=== PATIENT | male | born 1945 | race Caucasian/White ===

== ENCOUNTER 2021-03-26 16:04 | Inpatient (IN) ==
[2021-03-26] MEDS ORDERED: Lactated Ringers 1000 ml BAG 1,000 ML IV ONE (16:41)
[2021-03-26] MEDS ORDERED: Ondansetron 4 mg VIAL 2 MG/ML 2 ml VIAL IV ONE (16:51)
[2021-03-26 17:28] LABS: ABS Lymphocytes 0.3 10^3/ul (1.0-4.8); ABS Monocytes 0.3 10^3/ul (0-0.8); ABS Neutrophils 5.2 10^3/ul (1.5-7.7); Eosinophil % 0.8 %; Hematocrit 41 % (42-52); Lymphocyte % 5.6 %; Mean Corpuscular HGB Conc 35 g/dL (31-36); Mean Corpuscular Hemoglobin 32 pg (27-31); Mean Corpuscular Volume 93 fL (80-94); Mean Platelet Volume 6.9 fL (7.4-10.4); Platelet Count 276 10^3/uL (150-450); Red Blood Count 4.37 10^6 /uL (4.18-5.48); Red Cell Distribution Width 14 % (10-15); White Blood Count 5.9 10^3/uL (3.5-10.8)
[2021-03-26 17:51] LABS: Albumin 4.4 g/dL (3.2-5.2); Albumin/Globulin Ratio 1.4 (1-3); Calcium 9.3 mg/dL (8.6-10.3); Globulin 3.1 g/dL (2-4); Magnesium 1.6 mg/dL (1.9-2.7); Potassium 3.9 mmol/L (3.5-5.0); Total Bilirubin 1.2 mg/dL (0.2-1.0); Total Protein 7.5 g/dL (6.4-8.9); eGFR CKD-EPI 86.7 (>60)
[2021-03-26] MEDS ORDERED: Magnesium Sulfate IV 1GM/100ML 1 GM/100 ML BAG IV ONE (17:52)
[2021-03-26 17:54] LABS: Alcohol, S < 13 mg/dL (<13)
[2021-03-26] MEDS ORDERED: Thiamine 100 MG/ML 2 ml VIAL 100 MG, Folic Acid IV 1 MG, Multiple Vitamin IV ADULT 10 M... IV ONE (18:00)
[2021-03-26] MEDS ORDERED: NS 0.9% 1000 ml BAG 1,000 ML ONE (18:32)
[2021-03-26] MEDS ORDERED: Thiamine 100 MG/ML 2 ml VIAL (200 mg) ONE (18:32)
[2021-03-26 19:01] LABS: Urine Appearance Clear; Urine Bilirubin Negative (Negative); Urine Blood Negative (Negative); Urine Color Yellow; Urine Glucose 2+(150 mg/dL) (Negative); Urine Ketones Trace (Negative); Urine Nitrite Negative (Negative); Urine Protein Negative (Negative); Urine Specific Gravity 1.019 (1.002-1.030); Urine Urobilinogen Negative (Negative)
[2021-03-26] MEDS ORDERED: Magnesium Sulfate 2 gm BAG 2 GM/50 ML BAG IVPB ONE (22:40)
[2021-03-26] MEDS ORDERED: Enoxaparin 40 MG/0.4 ML SYR SUBCUT ONE (23:24)
[2021-03-27 08:11] LABS: ABS Eosinophils 0.3 10^3/ul (0-0.6); ABS Lymphocytes 0.6 10^3/ul (1.0-4.8); ABS Monocytes 0.5 10^3/ul (0-0.8); ABS Neutrophils 3.2 10^3/ul (1.5-7.7); Eosinophil % 6.4 %; Hematocrit 36 % (42-52); Hemoglobin 12.5 g/dL (14.0-18.0); Mean Corpuscular HGB Conc 35 g/dL (31-36); Mean Corpuscular Hemoglobin 32 pg (27-31); Mean Corpuscular Volume 92 fL (80-94); Mean Platelet Volume 6.6 fL (7.4-10.4); Platelet Count 241 10^3/uL (150-450); Red Blood Count 3.89 10^6 /uL (4.18-5.48); Red Cell Distribution Width 13 % (10-15); White Blood Count 4.6 10^3/uL (3.5-10.8)
[2021-03-27 08:28] LABS: Calcium 8.3 mg/dL (8.6-10.3); Potassium 3.6 mmol/L (3.5-5.0); eGFR CKD-EPI 89.1 (>60)
[2021-03-27 08:30] LABS: Troponin I 0.01 ng/mL (<0.03)
[2021-03-27] MEDS: Multivitamins/Minerals TAB PO SCH (09:01)
[2021-03-27 10:29] LABS: Direct Bilirubin 0.2 mg/dL (0.03-0.18); Indirect Bilirubin 0.8 mg/dL (0.3-1.0); Phosphorus 2.5 mg/dL (2.5-5.0)
[2021-03-27] MEDS ORDERED: Potassium Chlor 20 meq TAB.ER PO ONE (18:17)
[2021-03-27] MEDS: Enoxaparin 40 MG/0.4 ML SYR SUBCUT SCH (20:06)
[2021-03-27 21:17] LABS: Vitamin B12 252 pg/mL (180-914)
[2021-03-28 07:23] LABS: ABS Basophils 0.1 10^3/ul (0-0.2); ABS Eosinophils 0.3 10^3/ul (0-0.6); ABS Lymphocytes 0.7 10^3/ul (1.0-4.8); ABS Monocytes 0.5 10^3/ul (0-0.8); Hematocrit 37 % (42-52); Hemoglobin 13.1 g/dL (14.0-18.0); Lymphocyte % 20.6 %; Mean Corpuscular HGB Conc 35 g/dL (31-36); Mean Corpuscular Hemoglobin 32 pg (27-31); Mean Corpuscular Volume 93 fL (80-94); Mean Platelet Volume 6.5 fL (7.4-10.4); Platelet Count 242 10^3/uL (150-450); Red Blood Count 4.04 10^6 /uL (4.18-5.48); Red Cell Distribution Width 13 % (10-15); White Blood Count 3.6 10^3/uL (3.5-10.8)
[2021-03-28 07:38] LABS: Calcium 8.7 mg/dL (8.6-10.3); Magnesium 1.8 mg/dL (1.9-2.7); Potassium 3.8 mmol/L (3.5-5.0); eGFR CKD-EPI 83.5 (>60)
[2021-03-28] MEDS ORDERED: Magnesium Sulfate 2 gm BAG 2 GM/50 ML BAG IVPB ONE (07:45)
[2021-03-28] MEDS: Multivitamins/Minerals TAB PO SCH (09:59)
[2021-03-28] MEDS ORDERED: Iohexol 350 (CONTRAST) 500 ML MDV IV ONE (12:02)
[2021-03-28 12:34] LABS: HDL Cholesterol 43.6 mg/dL
[2021-03-28] MEDS: Pantoprazole VIAL 40 MG VIAL IV SCH (14:32)
[2021-03-28] MEDS: Enoxaparin 40 MG/0.4 ML SYR SUBCUT SCH (22:04)
[2021-03-29 06:21] LABS: ABS Basophils 0.1 10^3/ul (0-0.2); ABS Eosinophils 0.3 10^3/ul (0-0.6); ABS Lymphocytes 0.8 10^3/ul (1.0-4.8); ABS Monocytes 0.6 10^3/ul (0-0.8); ABS Neutrophils 2.5 10^3/ul (1.5-7.7); Eosinophil % 7.4 %; Hematocrit 41 % (42-52); Hemoglobin 14.5 g/dL (14.0-18.0); Lymphocyte % 18.4 %; Mean Corpuscular HGB Conc 35 g/dL (31-36); Mean Corpuscular Hemoglobin 32 pg (27-31); Mean Corpuscular Volume 91 fL (80-94); Mean Platelet Volume 6.9 fL (7.4-10.4); Platelet Count 241 10^3/uL (150-450); Red Blood Count 4.52 10^6 /uL (4.18-5.48); Red Cell Distribution Width 13 % (10-15); White Blood Count 4.3 10^3/uL (3.5-10.8)
[2021-03-29 06:42] LABS: Magnesium 1.7 mg/dL (1.9-2.7); Potassium 3.5 mmol/L (3.5-5.0); eGFR CKD-EPI 89.7 (>60)
[2021-03-29] MEDS ORDERED: Magnesium Sulfate IV 3 GM in NS 0.9% 100 ml BAG 100 ML IVPB ONE (07:29)
[2021-03-29] MEDS: Multivitamins/Minerals TAB PO SCH (10:10)
[2021-03-29] MEDS ORDERED: Potassium Chlor 20 meq TAB.ER PO ONE ×2 (10:14→14:00)
[2021-03-29] MEDS: Pantoprazole VIAL 40 MG VIAL IV SCH (12:03)
[2021-03-29] MEDS: Enoxaparin 40 MG/0.4 ML SYR SUBCUT SCH (20:37)
[2021-03-30 07:53] LABS: ABS Basophils 0.1 10^3/ul (0-0.2); ABS Eosinophils 0.3 10^3/ul (0-0.6); ABS Lymphocytes 0.9 10^3/ul (1.0-4.8); ABS Monocytes 0.7 10^3/ul (0-0.8); ABS Neutrophils 2.8 10^3/ul (1.5-7.7); Eosinophil % 5.5 %; Hematocrit 43 % (42-52); Mean Corpuscular HGB Conc 35 g/dL (31-36); Mean Corpuscular Hemoglobin 32 pg (27-31); Mean Corpuscular Volume 92 fL (80-94); Platelet Count 264 10^3/uL (150-450); Red Blood Count 4.64 10^6 /uL (4.18-5.48); Red Cell Distribution Width 14 % (10-15); White Blood Count 4.8 10^3/uL (3.5-10.8)
[2021-03-30 08:22] LABS: Calcium 9.1 mg/dL (8.6-10.3); Magnesium 1.9 mg/dL (1.9-2.7)
[2021-03-30 08:27] LABS: eGFR CKD-EPI 84.5 (>60)
[2021-03-30] MEDS ORDERED: Magnesium Sulfate IV 1GM/100ML 1 GM/100 ML BAG IV ONE (08:33)
[2021-03-30] MEDS: Multivitamins/Minerals TAB PO SCH (08:52)
[2021-03-30 11:18] VITALS: BP 129/65
== END 2021-03-30 15:36 | DRG 64 ==
LOC: ED 16:04 → SUATTDRO 22:46 → EDHOLD 22:46 → MEDTELE 03-27 04:00
PROVIDERS: ADMIT Internal Medicine; ATTEND Internal Medicine

== ENCOUNTER 2021-03-30 16:47 | Inpatient (IN) ==
[2021-03-30] MEDS: Senna TAB 8.6 mg TAB PO PRN (19:59)
[2021-03-30] MEDS: Enoxaparin 40 MG/0.4 ML SYR SUBCUT SCH (20:00)
[2021-03-31 07:33] LABS: ABS Basophils 0.1 10^3/ul (0-0.2); ABS Eosinophils 0.3 10^3/ul (0-0.6); ABS Lymphocytes 0.7 10^3/ul (1.0-4.8); ABS Monocytes 0.7 10^3/ul (0-0.8); ABS Neutrophils 2.8 10^3/ul (1.5-7.7); Hematocrit 39 % (42-52); Hemoglobin 13.3 g/dL (14.0-18.0); Lymphocyte % 16.3 %; Mean Corpuscular HGB Conc 34 g/dL (31-36); Mean Corpuscular Hemoglobin 32 pg (27-31); Mean Corpuscular Volume 93 fL (80-94); Nucleated Red Blood Cells % 0.1; Platelet Count 255 10^3/uL (150-450); Red Blood Count 4.16 10^6 /uL (4.18-5.48); Red Cell Distribution Width 13 % (10-15); White Blood Count 4.5 10^3/uL (3.5-10.8)
[2021-03-31 07:48] LABS: Albumin 3.7 g/dL (3.2-5.2); Albumin/Globulin Ratio 1.4 (1-3); Calcium 8.8 mg/dL (8.6-10.3); Globulin 2.7 g/dL (2-4); Potassium 3.7 mmol/L (3.5-5.0); Total Bilirubin 1.2 mg/dL (0.2-1.0); Total Protein 6.4 g/dL (6.4-8.9); eGFR CKD-EPI 87.9 (>60)
[2021-03-31] MEDS: Aspirin EC 81 mg TAB.EC (enteric coated) PO SCH (09:50)
[2021-03-31] MEDS: Senna TAB 8.6 mg TAB PO PRN (20:16)
[2021-03-31] MEDS: Enoxaparin 40 MG/0.4 ML SYR SUBCUT SCH (20:16)
[2021-04-01] MEDS: Aspirin EC 81 mg TAB.EC (enteric coated) PO SCH (08:58)
[2021-04-01] MEDS: Enoxaparin 40 MG/0.4 ML SYR SUBCUT SCH (20:40)
[2021-04-02] MEDS: Aspirin EC 81 mg TAB.EC (enteric coated) PO SCH (09:03)
[2021-04-02] MEDS ORDERED: COVID-19 VACCINE, MRNA(MODERNA) BOOSTER/PF 50 MCG/0.25 ML IM ONE (13:00)
[2021-04-03] MEDS: Aspirin EC 81 mg TAB.EC (enteric coated) PO SCH (10:13)
[2021-04-04] MEDS: Aspirin EC 81 mg TAB.EC (enteric coated) PO SCH (08:57)
[2021-04-05] MEDS: Aspirin EC 81 mg TAB.EC (enteric coated) PO SCH (07:31)
[2021-04-06] MEDS: Aspirin EC 81 mg TAB.EC (enteric coated) PO SCH (10:41)
[2021-04-07 06:29] LABS: ABS Eosinophils 0.4 10^3/ul (0-0.6); ABS Lymphocytes 0.8 10^3/ul (1.0-4.8); ABS Monocytes 0.5 10^3/ul (0-0.8); Hematocrit 39 % (42-52); Hemoglobin 13.1 g/dL (14.0-18.0); Lymphocyte % 22.3 %; Mean Corpuscular HGB Conc 34 g/dL (31-36); Mean Corpuscular Hemoglobin 31 pg (27-31); Mean Corpuscular Volume 93 fL (80-94); Mean Platelet Volume 6.9 fL (7.4-10.4); Nucleated Red Blood Cells % 0.2; Platelet Count 284 10^3/uL (150-450); Red Blood Count 4.17 10^6 /uL (4.18-5.48); Red Cell Distribution Width 13 % (10-15); White Blood Count 3.7 10^3/uL (3.5-10.8)
[2021-04-07 06:52] LABS: Albumin 3.8 g/dL (3.2-5.2); Albumin/Globulin Ratio 1.5 (1-3); Calcium 9.3 mg/dL (8.6-10.3); Globulin 2.6 g/dL (2-4); Potassium 3.9 mmol/L (3.5-5.0); Total Bilirubin 0.9 mg/dL (0.2-1.0); Total Protein 6.4 g/dL (6.4-8.9); eGFR CKD-EPI 81.4 (>60)
[2021-04-07] MEDS: Aspirin EC 81 mg TAB.EC (enteric coated) PO SCH (09:04)
[2021-04-08] MEDS: Aspirin EC 81 mg TAB.EC (enteric coated) PO SCH (09:12)
[2021-04-09] MEDS: Aspirin EC 81 mg TAB.EC (enteric coated) PO SCH (09:00)
[2021-04-09 10:17] LABS: ABS Eosinophils 0.4 10^3/ul (0-0.6); ABS Lymphocytes 0.5 10^3/ul (1.0-4.8); ABS Monocytes 0.4 10^3/ul (0-0.8); ABS Neutrophils 2.3 10^3/ul (1.5-7.7); Eosinophil % 10.4 %; Hematocrit 40 % (42-52); Hemoglobin 13.5 g/dL (14.0-18.0); Mean Corpuscular HGB Conc 34 g/dL (31-36); Mean Corpuscular Hemoglobin 32 pg (27-31); Mean Corpuscular Volume 93 fL (80-94); Nucleated Red Blood Cells % 0.1; Platelet Count 309 10^3/uL (150-450); Red Blood Count 4.27 10^6 /uL (4.18-5.48); Red Cell Distribution Width 13 % (10-15); White Blood Count 3.6 10^3/uL (3.5-10.8)
[2021-04-09 10:36] LABS: Albumin 3.8 g/dL (3.2-5.2); Albumin/Globulin Ratio 1.4 (1-3); Calcium 9.4 mg/dL (8.6-10.3); Globulin 2.7 g/dL (2-4); Potassium 4.1 mmol/L (3.5-5.0); Total Bilirubin 0.8 mg/dL (0.2-1.0); Total Protein 6.5 g/dL (6.4-8.9); eGFR CKD-EPI 70.8 (>60)
[2021-04-10] MEDS: Aspirin EC 81 mg TAB.EC (enteric coated) PO SCH (09:14)
[2021-04-11] MEDS: Aspirin EC 81 mg TAB.EC (enteric coated) PO SCH (09:02)
[2021-04-12] MEDS: Aspirin EC 81 mg TAB.EC (enteric coated) PO SCH (10:16)
[2021-04-13] MEDS: Aspirin EC 81 mg TAB.EC (enteric coated) PO SCH (08:05)
[2021-04-14 07:55] LABS: ABS Eosinophils 0.4 10^3/ul (0-0.6); ABS Lymphocytes 0.9 10^3/ul (1.0-4.8); ABS Monocytes 0.4 10^3/ul (0-0.8); ABS Neutrophils 2.3 10^3/ul (1.5-7.7); Eosinophil % 9.2 %; Hematocrit 40 % (42-52); Hemoglobin 13.7 g/dL (14.0-18.0); Lymphocyte % 21.9 %; Mean Corpuscular HGB Conc 35 g/dL (31-36); Mean Corpuscular Hemoglobin 32 pg (27-31); Mean Corpuscular Volume 92 fL (80-94); Mean Platelet Volume 7.4 fL (7.4-10.4); Platelet Count 307 10^3/uL (150-450); Red Blood Count 4.35 10^6 /uL (4.18-5.48); Red Cell Distribution Width 13 % (10-15)
[2021-04-14 08:33] LABS: Albumin 3.9 g/dL (3.2-5.2); Albumin/Globulin Ratio 1.4 (1-3); Calcium 9.4 mg/dL (8.6-10.3); Globulin 2.8 g/dL (2-4); Potassium 4.1 mmol/L (3.5-5.0); Total Bilirubin 0.8 mg/dL (0.2-1.0); Total Protein 6.7 g/dL (6.4-8.9); eGFR CKD-EPI 77.6 (>60)
[2021-04-14] MEDS: Aspirin EC 81 mg TAB.EC (enteric coated) PO SCH (10:27)
[2021-04-15 06:20] VITALS: BP 133/77
[2021-04-15] MEDS: Aspirin EC 81 mg TAB.EC (enteric coated) PO SCH (08:21)
== END 2021-04-15 15:52 | disposition home health service (06) | DRG 57 ==
LOC: PMRU 16:47
PROVIDERS: ADMIT Physical Medicine & Rehabilitation; ATTEND Physical Medicine & Rehabilitation

== ENCOUNTER 2023-04-15 20:14 | Inpatient (IN) ==
[2023-04-15] MEDS ORDERED: Albuterol/Ipratropium NEB.SOL (2.5/0.5 MG) 3 ML NEB.SOLN INH ONE (20:33)
[2023-04-15] MEDS ORDERED: Morphine 4 MG/ML VIAL (1 ml) IV ONE (20:37)
[2023-04-15 20:45] LABS: ABS Eosinophils 0.2 10^3/uL (0.0-0.5); ABS Lymphocytes 0.6 10^3/uL (1.0-4.8); ABS Monocytes 0.9 10^3/uL (0.0-1.1); ABS Neutrophils 6.5 10^3/uL (1.5-7.6); Eosinophil % 2.2 %; Hemoglobin 12.6 g/dL (13.2-16.3); Lymphocyte % 7.5 %; Mean Corpuscular Volume 94.3 fL (80-97); Mean Platelet Volume 7.1 fL (7.5-11.2); Platelet Count 284 10^3/uL (150-450); Red Blood Count 3.82 10^6/uL (4.06-5.63); Red Cell Distribution Width 13.1 % (12-17); White Blood Count 8.2 10^3/uL (3.6-10.2)
[2023-04-15 20:46] LABS: INR 1.36 (0.83-1.13)
[2023-04-15 21:06] LABS: Albumin/Globulin Ratio 1.3 (1-3); C Reactive Protein 3.68 mg/L (<8.01); Calcium 9.4 mg/dL (8.6-10.3); Creatinine, Serum 1.77 mg/dL (0.67-1.17); Potassium 3.4 mmol/L (3.5-5.0); Total Bilirubin 1.4 mg/dL (0.2-1.0); eGFR CKD-EPI 39.1 (>60)
[2023-04-15] MEDS ORDERED: Furosemide 40 mg/4 ml IV VIAL IV SLOW PU ONE (22:13)
[2023-04-15] MEDS ORDERED: cefTRIAXone 1 gm/50 mL D5W 1 GM/50 ML BAG IV SCH (22:30)
[2023-04-15 22:49] LABS: High Sensitivity Troponin 1 Hr 8 pg/mL (<20)
[2023-04-15] MEDS: SPIRIVA Respimat (tiotropium) 2.5 mcg/inh Inhaler INH SCH (23:20)
[2023-04-15 23:44] LABS: Urine Osmo 295 mOsm/kg (150-1150)
[2023-04-15] MEDS ORDERED: Lactated Ringers 1000 ml BAG 1,000 ML IV SCH (23:45)
[2023-04-15 23:46] LABS: Urine Appearance Clear; Urine Bilirubin Negative (Negative); Urine Blood 2+ (Negative); Urine Color Yellow; Urine Glucose Negative (Negative); Urine Ketones Negative (Negative); Urine Nitrite Negative (Negative); Urine Protein Negative (Negative); Urine Specific Gravity 1.013 (1.002-1.030); Urine Urobilinogen Negative (Negative)
[2023-04-15] MEDS ORDERED: fentaNYL 100 mcg/2 ml 50 MCG/ML VIAL IV SLOW PU PRN (23:49)
[2023-04-16 00:11] LABS: Urine Amorphous Crystals Present /HPF (Absent); Urine Bacteria Absent (Absent); Urine Red Blood Cell 3+(>10/hpf) (Absent); Urine White Blood Cell Trace(0-5/hpf) (Absent)
[2023-04-16 01:16] LABS: Calcium 9.1 mg/dL (8.6-10.3); Creatinine, Serum 1.8 mg/dL (0.67-1.17); Potassium 3.4 mmol/L (3.5-5.0); eGFR CKD-EPI 38.3 (>60)
[2023-04-16 01:40] LABS: TSH Ultra Thyroid Stim Horm 1.36 mcIU/mL (0.34-5.60)
[2023-04-16 06:49] LABS: ABS Eosinophils 0.2 10^3/uL (0.0-0.5); ABS Lymphocytes 0.9 10^3/uL (1.0-4.8); ABS Neutrophils 4.4 10^3/uL (1.5-7.6); Eosinophil % 2.9 %; Hematocrit 34.7 % (38-53); Hemoglobin 12.2 g/dL (13.2-16.3); Lymphocyte % 13.9 %; Mean Corpuscular Hemoglobin 33.1 pg (27-33); Mean Corpuscular Hgb Conc 35.2 g/dL (31-36); Mean Corpuscular Volume 93.9 fL (80-97); Mean Platelet Volume 7.1 fL (7.5-11.2); Nucleated Red Blood Cells % 0.1 %/100WBC (0.0-0.8); Platelet Count 239 10^3/uL (150-450); Red Cell Distribution Width 12.9 % (12-17); White Blood Count 6.6 10^3/uL (3.6-10.2)
[2023-04-16 06:55] LABS: Calcium 9.2 mg/dL (8.6-10.3); Creatinine, Serum 1.74 mg/dL (0.67-1.17); Potassium 3.6 mmol/L (3.5-5.0); eGFR CKD-EPI 39.9 (>60)
[2023-04-16] MEDS: SPIRIVA Respimat (tiotropium) 2.5 mcg/inh Inhaler INH SCH (07:06)
[2023-04-16] MEDS: Aspirin EC 81 mg TAB.EC (enteric coated) PO SCH (09:07)
[2023-04-16] MEDS ORDERED: cefTRIAXone 2 gm/50 mL D5W 2 GM/50 ML BAG IV ONE (11:00)
[2023-04-16] MEDS ORDERED: Naloxone 0.4 mg VIAL 0.4 mg/ml 1 ml VIAL IV PRN (12:23)
[2023-04-16] MEDS ORDERED: fentaNYL 100 mcg/2 ml 50 MCG/ML VIAL IV PRN (12:23)
[2023-04-16] MEDS ORDERED: Ondansetron 4 mg VIAL 2 MG/ML 2 ml VIAL IV PRN (12:23)
[2023-04-16] MEDS: Senna TAB 8.6 mg TAB PO PRN (20:33)
[2023-04-17 06:47] LABS: ABS Lymphocytes 0.7 10^3/uL (1.0-4.8); ABS Monocytes 0.8 10^3/uL (0.0-1.1); ABS Neutrophils 5.6 10^3/uL (1.5-7.6); ABS Nucleated RBC 0.01 10^3/ul; Eosinophil % 0.2 %; Hematocrit 32.9 % (38-53); Hemoglobin 11.6 g/dL (13.2-16.3); Lymphocyte % 10.3 %; Mean Corpuscular Hgb Conc 35.2 g/dL (31-36); Mean Corpuscular Volume 93.7 fL (80-97); Mean Platelet Volume 6.9 fL (7.5-11.2); Nucleated Red Blood Cells % 0.1 %/100WBC (0.0-0.8); Platelet Count 249 10^3/uL (150-450); Red Blood Count 3.51 10^6/uL (4.06-5.63); Red Cell Distribution Width 12.9 % (12-17); White Blood Count 7.2 10^3/uL (3.6-10.2)
[2023-04-17 07:05] LABS: Calcium 8.9 mg/dL (8.6-10.3); Creatinine, Serum 1.14 mg/dL (0.67-1.17); Potassium 3.3 mmol/L (3.5-5.0); eGFR CKD-EPI 66.2 (>60)
[2023-04-17] MEDS: SPIRIVA Respimat (tiotropium) 2.5 mcg/inh Inhaler INH SCH (08:40)
[2023-04-17] MEDS: Aspirin EC 81 mg TAB.EC (enteric coated) PO SCH (09:06)
[2023-04-17] MEDS: Senna TAB 8.6 mg TAB PO PRN (09:06)
[2023-04-17] MEDS ORDERED: Potassium Chlor 20 meq TAB.ER PO ONE (11:19)
[2023-04-17 13:51] VITALS: BP 122/65
[2023-04-21 13:04] LABS: Interpretation 100% Uric acid.
== END 2023-04-17 12:40 | disposition home or self-care (01) | DRG 660 ==
LOC: EDHOLD 20:14 → ED 20:14 → SUATTDRO 22:11 → MEDTELE 23:42
PROVIDERS: ADMIT Internal Medicine; ATTEND Internal Medicine

== ENCOUNTER 2023-11-04 13:24 | Observation (INO) ==
[2023-11-04] MEDS: Iodixanol (CONTRAST) 320 MG/ML 100 ML SDV IV ONE (13:54)
[2023-11-04 14:02] LABS: ABS Basophils 0.1 10^3/uL (0.0-0.1); ABS Eosinophils 0.4 10^3/uL (0.0-0.5); ABS Lymphocytes 0.7 10^3/uL (1.0-4.8); ABS Monocytes 0.9 10^3/uL (0.0-1.1); ABS Neutrophils 5.6 10^3/uL (1.5-7.6); Eosinophil % 5.9 %; Hematocrit 31.5 % (38-53); Hemoglobin 10.8 g/dL (13.2-16.3); Lymphocyte % 8.8 %; Mean Corpuscular Hemoglobin 32.7 pg (27-33); Mean Corpuscular Hgb Conc 34.3 g/dL (31-36); Mean Corpuscular Volume 95.4 fL (80-97); Mean Platelet Volume 6.7 fL (7.5-11.2); Platelet Count 303 10^3/uL (150-450); Red Cell Distribution Width 12.9 % (12-17); White Blood Count 7.7 10^3/uL (3.6-10.2)
[2023-11-04 14:24] LABS: Activated Partial Thrombo Time 30.8 seconds (26.0-38.0); INR 1.46 (0.85-1.14)
[2023-11-04 14:40] LABS: Albumin/Globulin Ratio 1.5 (1-3); C Reactive Protein 2.1 mg/L (<8.01); Calcium 9.2 mg/dL (8.6-10.3); Creatinine, Serum 1.46 mg/dL (0.67-1.17); Direct Bilirubin 0.2 mg/dL (0.03-0.18); Globulin 2.6 g/dL (2-4); HDL Cholesterol 60.3 mg/dL; Indirect Bilirubin 0.6 mg/dL (0.3-1.0); Magnesium 1.4 mg/dL (1.9-2.7); Phosphorus 3.4 mg/dL (2.5-5.0); Potassium 3.9 mmol/L (3.5-5.0); Total Bilirubin 0.8 mg/dL (0.2-1.0); Total Protein 6.6 g/dL (6.4-8.9); eGFR CKD-EPI 48.9 (>60)
[2023-11-04] MEDS: Lactated Ringers 1000 ml BAG IV.FLUID IV ONE (15:29)
[2023-11-04 15:41] LABS: Urine Appearance Clear; Urine Bilirubin Negative (Negative); Urine Blood Negative (Negative); Urine Color Light-Yellow; Urine Glucose Negative (Negative); Urine Ketones Negative (Negative); Urine Nitrite Negative (Negative); Urine Protein Negative (Negative); Urine Specific Gravity 1.027 (1.002-1.030); Urine Urobilinogen Negative (Negative); Urine pH 5.5 (5.0-8.0)
[2023-11-04 15:50] LABS: High Sensitivity Troponin 1 Hr 7 pg/mL (<20)
[2023-11-04] MEDS ORDERED: Ondansetron 4 mg VIAL 2 MG/ML 2 ml VIAL IV PRN (17:47)
[2023-11-04 18:30] LABS: Calcium 9.1 mg/dL (8.6-10.3); Creatinine, Serum 1.27 mg/dL (0.67-1.17); Potassium 4.2 mmol/L (3.5-5.0); eGFR CKD-EPI 57.8 (>60)
[2023-11-04] MEDS: Magnesium Sulf 4 GM/100 ML IV 4,000 MG/100 ML BAG IVPB ONE (18:32)
[2023-11-04] MEDS: Multivitamins/Minerals TAB PO SCH (20:10)
[2023-11-04] MEDS ORDERED: Lorazepam PYXIS KEY PRN (20:34)
[2023-11-04] MEDS ORDERED: LORazepam 2 mg VIAL 1 ml IV PUSH SCH (21:00)
[2023-11-04 22:53] LABS: Calcium 9.5 mg/dL (8.6-10.3); Creatinine, Serum 1.13 mg/dL (0.67-1.17); Potassium 4.1 mmol/L (3.5-5.0); eGFR CKD-EPI 66.5 (>60)
[2023-11-05 05:56] LABS: Creatinine, Serum 0.92 mg/dL (0.67-1.17); Magnesium 2.2 mg/dL (1.9-2.7); eGFR CKD-EPI 85.1 (>60)
[2023-11-05] MEDS: Aspirin EC 81 mg TAB.EC (enteric coated) PO SCH (09:41)
[2023-11-05 13:56] LABS: Ferritin 524.3 ng/mL (24-336)
[2023-11-06 06:06] LABS: ABS Basophils 0.1 10^3/uL (0.0-0.1); ABS Eosinophils 0.5 10^3/uL (0.0-0.5); ABS Lymphocytes 0.9 10^3/uL (1.0-4.8); ABS Monocytes 0.6 10^3/uL (0.0-1.1); ABS Neutrophils 2.8 10^3/uL (1.5-7.6); Eosinophil % 9.7 %; Hematocrit 29.2 % (38-53); Hemoglobin 10.4 g/dL (13.2-16.3); Lymphocyte % 19.3 %; Mean Corpuscular Hemoglobin 34.2 pg (27-33); Mean Corpuscular Hgb Conc 35.5 g/dL (31-36); Mean Corpuscular Volume 96.4 fL (80-97); Mean Platelet Volume 6.7 fL (7.5-11.2); Platelet Count 281 10^3/uL (150-450); Red Blood Count 3.03 10^6/uL (4.06-5.63); Red Cell Distribution Width 12.9 % (12-17); White Blood Count 4.8 10^3/uL (3.6-10.2)
[2023-11-06 06:52] LABS: Calcium 8.8 mg/dL (8.6-10.3); Creatinine, Serum 0.92 mg/dL (0.67-1.17); Magnesium 1.7 mg/dL (1.9-2.7); Potassium 3.9 mmol/L (3.5-5.0); eGFR CKD-EPI 85.1 (>60)
[2023-11-06] MEDS: Magnesium Sulfate 2 gm BAG 2 GM/50 ML BAG IVPB ONE (08:22)
[2023-11-06] MEDS ORDERED: Lorazepam PYXIS KEY PRN ×2 (11:30→17:28)
[2023-11-06] MEDS: LORazepam 2 mg VIAL 1 ml IV PUSH ONE ×2 (18:05→20:57)
[2023-11-07 06:05] LABS: ABS Basophils 0.1 10^3/uL (0.0-0.1); ABS Eosinophils 0.5 10^3/uL (0.0-0.5); ABS Lymphocytes 0.6 10^3/uL (1.0-4.8); ABS Monocytes 0.5 10^3/uL (0.0-1.1); ABS Neutrophils 2.4 10^3/uL (1.5-7.6); Eosinophil % 11.8 %; Hematocrit 28.4 % (38-53); Lymphocyte % 14.6 %; Mean Corpuscular Hemoglobin 34.1 pg (27-33); Mean Corpuscular Hgb Conc 35.1 g/dL (31-36); Mean Corpuscular Volume 97.2 fL (80-97); Mean Platelet Volume 6.5 fL (7.5-11.2); Nucleated Red Blood Cells % 0.1 %/100WBC (0.0-0.8); Platelet Count 270 10^3/uL (150-450); Red Blood Count 2.92 10^6/uL (4.06-5.63); Red Cell Distribution Width 12.9 % (12-17); White Blood Count 3.9 10^3/uL (3.6-10.2)
[2023-11-07 06:10] LABS: Creatinine, Serum 0.77 mg/dL (0.67-1.17); Magnesium 1.7 mg/dL (1.9-2.7); Potassium 4.1 mmol/L (3.5-5.0); eGFR CKD-EPI 91.6 (>60)
[2023-11-07] MEDS: Magnesium Sulfate 2 gm BAG 2 GM/50 ML BAG IVPB ONE (12:21)
[2023-11-07 13:46] VITALS: BP 117/71
== END 2023-11-07 15:30 | disposition home or self-care (01) ==
LOC: EDHOLD 13:24 → ED 13:24 → SUATTDRO 17:38 → MEDTELE 22:34
PROVIDERS: ADMIT Internal Medicine; ATTEND Student in an Organized Health Care Education/Training Program